=== PATIENT | female | born 1985 | race Caucasian/White ===

== ENCOUNTER → 2020-07-06 12:06 | Outpatient (CLI) | payer OTHER, SELFPAY ==
[2020-07-06 13:24] LABS: Appearance Urine UA CLEAR; Bilirubin Urine UA NEGATIVE (NEGATIVE); Color Urine UA YELLOW; Glucose Urine UA NEGATIVE (Negative); Ketones Urine UA NEGATIVE (NEGATIVE); Leukocyte Esterase Urine UA NEGATIVE (NEGATIVE); Nitrite Urine UA NEGATIVE (Negative); Occult Blood Urine UA TRACE-LYSED (Negative); Protein Urine UA NEGATIVE (Negative); Specific Gravity Urine UA 1.015 (1.000-1.035); Urobilinogen Urine UA 0.2 E.U./dL (0.2)
[2020-07-06 13:35] LABS: Add Manual Diff / Slide Review NO; Basophils Absolute Auto 0 /uL (0-100); Basophils Percent Auto 0.4 % (0-2); Eosinophils Absolute Auto 100 /uL (0-450); Hematocrit 36.5 % (36-46); Hemoglobin 12.3 g/dL (12.0-16.0); Lymphocytes Absolute Auto 2200 /uL (1100-4500); Lymphocytes Percent Auto 19.5 % (25-40); Mean Corpuscular HGB Conc 33.8 % (30-36); Mean Corpuscular Volume 91.9 fL (80-100); Monocytes Absolute Auto 600 /uL (0-900); Monocytes Percent Auto 4.9 % (3-14); Neutrophils Absolute Auto 8500 /uL (1500-7000); Neutrophils Percent Auto 74.2 % (50-75); Platelet Count 288 X10^3/uL (150-400); Red Blood Cell Count 3.97 X10^6/uL (4.0-5.2); Red Cell Distribution Width 12.4 % (11.6-14.8); White Blood Cell Count 11.5 X10^3/uL (4.5-11.0)
[2020-07-06 16:16] LABS: Urine N gonorrhoeae NOT DETECTED
[2020-07-06 16:37] LABS: Urine Chlamydia NOT DETECTED
[2020-07-06 17:45] LABS: HIV 1 & 2 Ab/Ag 4th Gen Combo NEGATIVE (NEGATIVE); Hep C Virus Ab w/Reflex Quant NEGATIVE s/c (NEGATIVE); Hepatitis B Surface Antigen NEGATIVE s/c (NEGATIVE); Rubella Antibody IgG 19.3 IU/mL (>15)
[2020-07-07 07:39] LABS: RPR Screen Non Reactive (Non Reactive)
[2020-07-07 08:09] LABS: Varicella IgG Antibody 1922 index (Immune >165)
== END ==
PROVIDERS: PCP Nurse Practitioner Family; Referring Provider Specialist; Visit Provider Specialist
DX: Z34.01 Encounter for supervision of normal first pregnancy, first trimester (principal); Z3A.08 8 weeks gestation of pregnancy
CPT/HCPCS: 36415; 80055; 81003; 86787; 86803; 86850; 86900; 86901; 87086; 87389; 87491; 87591

== ENCOUNTER → 2020-08-03 08:42 | Outpatient (ROUT) | payer OTHER, SELFPAY | PROVIDERS: PCP Nurse Practitioner Family; Visit Provider Specialist | DX: O09.511 Supervision of elderly primigravida, first trimester (principal); Z36.0 Encounter for antenatal screening for chromosomal anomalies | CPT/HCPCS: 81420 ==

== ENCOUNTER → 2020-09-28 10:08 | Outpatient (CLI) | payer OTHER, SELFPAY ==
--- NOTE | 2020-09-28 10:09 | DI.US.S_ITS ---
PROCEDURE: US OB >= 14 WEEKS FETUS INDICATIONS: ANATOMY OUTSIDE/PRIOR DATING DATA: Last menstrual period (LMP): 05/08/2020. LMP-based estimated date of delivery (GUERA): 02/12/2021 . First dating scan (date and location): 07/06/2020 . Estimated date of delivery (GUERA) from first dating scan: 02/10/2021 . TECHNIQUE: Real-time scanning was performed of the fetus, with image documentation and biometric measurements. Endovaginal scanning: No COMPARISON: [facility], , OB <= 14 WEEKS FETUS, 07/06/2020, 12:27. FINDINGS: General: A single living intrauterine gestation is present. Presentation: Breech. Placenta: Placental position is posterior , without previa. Amniotic fluid index: 13.1 cm, normal range is 5-24 cm. heart rate: 163 beats per minute. Maternal cervical canal: 3.2 cm long. Normal lower limit is 2.5 cm. biometrics: Biparietal diameter: 21 weeks 3 days Head circumference: 21 weeks Abdominal circumference: 21 weeks 3 days Femur length: 21 weeks 3 days Estimated gestational age from initial scan: 20 weeks 5 days Composite gestational age from present scan: 21 weeks 2 days Estimated weight and percentile: 420 g; 81st percentile. Measurement variability for biometric dating: +/- 7 days from 14 weeks to 15 weeks 6 days gestation, +/- 10 days from 16 weeks to 21 weeks 6 days gestation, +/- 2 weeks from 22 weeks to 27 weeks 6 days gestation, +/- 3 weeks for 28 weeks gestation or later. weight reference: 4500 g or EFW >90/95% is considered macrosomia or large for gestational age. EFW <10% is small for gestational age. EFW 5% or less is considered intra-uterine growth restriction. Anatomic survey: Neuro: Ventricles are non-dilated at less than 10 mm. Cisterna magna is normal at 3-11 mm. Cerebellum is normal in size and morphology. Nuchal skin fold: Normal at less than 6 mm between 14-21 weeks gestational age. Face: Nose and lips, facial profile are normal. Spine: No evidence for spina bifida. Heart: 4-chambered heart is present, with normal ventricular outflow tracts. Diaphragm: Diaphragm is intact. Stomach: Left-sided stomach is present. Kidneys: No hydronephrosis. Normal is less than 5 mm in 2nd trimester, less than 7 mm in 3rd trimester. Cord: 3-vessel cord has orthotopic insertion. Bladder: Normal in size. Extremities: All 4 extremities identified. IMPRESSION: 1. Normal interval growth. 2. Normal anatomic survey. Dictated by: John AGUSTIN Interpreted: Maggi Lewis MD on 09/28/2020 at 11:17 Transcribed by: ДМИТРИЙ on 09/28/2020 at 11:19 Approved by: Maggi Lewis M.D. on 09/28/2020 at 12:05
== END ==
PROVIDERS: PCP Nurse Practitioner Family; Referring Provider Specialist; Visit Provider Specialist
DX: Z34.92 Encounter for supervision of normal pregnancy, unspecified, second trimester (principal); Z3A.21 21 weeks gestation of pregnancy
CPT/HCPCS: 76811

== ENCOUNTER → 2021-01-17 08:12 | Outpatient (CLI) | payer OTHER, SELFPAY ==
[2021-01-18 08:39] LABS: Strep Grp B PCR NEG for Grp B Strep
== END ==
PROVIDERS: PCP Nurse Practitioner Family; Visit Provider Specialist
DX: Z34.03 Encounter for supervision of normal first pregnancy, third trimester (principal); Z3A.36 36 weeks gestation of pregnancy
CPT/HCPCS: 87653

== ENCOUNTER 2021-02-14 12:11 | Observation (INO) | payer OTHER, SELFPAY ==
--- NOTE | 2021-02-14 13:11 | PM.OBTRLD ---
Visit Information Visit Information Date of evaluation: 02/14/21 Primary OB Provider: Rosie Gonzales Reason for Evaluation: Yes non-stress test Comments/Additional reasons for admission: post dates [facility] Medical History (Updated 06/28/20 @ 12:53 by Griselda Childs, PAU) AMA (advanced maternal age) primigravida 35+ Anxiety Depression Migraine Oral herpes (~2007) Surgical History (Updated 06/28/20 @ 12:51 by Griselda Childs RN) No history of previous surgery S/P wisdom tooth extraction Family History (Updated 06/28/20 @ 12:51 by Griselda Childs RN) Father Chronic lymphocytic leukemia Cancer Cardiomyopathy History of open heart surgery Hyperlipidemia History of cholecystectomy Mother Diabetes mellitus Type 2 diabetes mellitus Depression H/O thyroidectomy Grandfather History of heart disease Grandmother Diabetes mellitus Type 2 diabetes mellitus Cancer Gynecologic cancer Grandfather Congestive heart failure Grandmother Dementia Brother No problems noted. 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 Patient will return tonight for beginning induction with Cervidil for postdates OB Disposition: home
== END 2021-02-14 12:58 | disposition home or self-care (01) ==
LOC: LABOR 12:12
PROVIDERS: Admitting Provider Specialist; PCP Specialist; Referring Provider Specialist; Visit Provider Specialist
DX: O48.0 Post-term pregnancy (principal); Z3A.40 40 weeks gestation of pregnancy
CPT/HCPCS: 59025; G0378; G0379

== ENCOUNTER 2021-02-14 18:12 | Inpatient (IN) | payer OTHER, SELFPAY ==
[2021-02-14 18:18] VITALS: BP 115/76
[2021-02-14 19:22] LABS: Add Manual Diff / Slide Review NO; Basophils Absolute Auto 0 /uL (0-100); Basophils Percent Auto 0.2 % (0-2); Eosinophils Absolute Auto 100 /uL (0-450); Eosinophils Percent Auto 0.4 % (2-4); Hematocrit 33.2 % (36-46); Hemoglobin 11.5 g/dL (12.0-16.0); Lymphocytes Absolute Auto 2400 /uL (1100-4500); Lymphocytes Percent Auto 18.9 % (25-40); Mean Corpuscular HGB Conc 34.6 % (30-36); Mean Corpuscular Hemoglobin 31.7 PG (26-34); Mean Corpuscular Volume 91.6 fL (80-100); Monocytes Absolute Auto 1000 /uL (0-900); Monocytes Percent Auto 7.8 % (3-14); Neutrophils Absolute Auto 9100 /uL (1500-7000); Neutrophils Percent Auto 72.7 % (50-75); Platelet Count 218 X10^3/uL (150-400); Red Blood Cell Count 3.63 X10^6/uL (4.0-5.2); Red Cell Distribution Width 12.7 % (11.6-14.8); White Blood Cell Count 12.5 X10^3/uL (4.5-11.0)
[2021-02-14] MEDS: DINOPROSTONE VAG (CERVIDIL) 10 MG VAG (19:29)
[2021-02-14 19:35] LABS: COVID19 -Nasal RAPID Negative (Negative)
--- NOTE | 2021-02-15 07:44 | PM.OBHP.1 ---
OB HPI Date/Time Date of admission: 02/15/21 Date Patient Seen: 02/15/21 Time Patient Seen: 07:45 History of Present Condition Chief complaint: INDUCTION : 1 Para: 0 Estimated Date of Delivery: 02/12/21 Estimated Gestational Age (weeks): 40 Narrative: Susana Zamorano is a 35 year old female admitted for induction for postdates Indications Indication for induction OB: post dates History of Present care: good care, initiated at week # (8), number of visits (13) and pounds weight gain (58) Dating criteria: LMP confirmed by 1st trimester US Ultrasounds: normal mid trimester US Obstetrical complications: none Medical complications: none Preadmission Labs Blood type: A (+) positive -: Antibody screen: negative, GBS status: negative, HBsAG: negative, HIV: negative, HSV 1: positive and RPR/VDLR: negative -: Chlamydia screen: not detected and Gonorrhea screen: not detected -: Rubella: immune and Varicella: immune HCAB: negative Cell-free DNA: normal male 1 hr GTT: 95 Evaluation Evaluation Baseline heart rate: 15 Variability: Moderate (11-25) monitor accelerations: Present Monitor Decelerations: Absent Contraction Frequency (minutes): 3 Uterine Contraction Intensity: Mild Category of Tracing: Reactive Status: Category l Dilation (cm): 0 Effacement (%): 100 station: 0 Position of cervix: posterior [facility] Medical History (Updated 06/28/20 @ 12:53 by Griselda Childs RN) AMA (advanced maternal age) primigravida 35+ Anxiety Depression Migraine Oral herpes (~2007) Surgical History (Updated 06/28/20 @ 12:51 by Griselda Childs RN) No history of previous surgery S/P wisdom tooth extraction Family History (Updated 06/28/20 @ 12:51 by Griselda Childs RN) Father Chronic lymphocytic leukemia Cancer Cardiomyopathy History of open heart surgery Hyperlipidemia History of cholecystectomy Mother Diabetes mellitus Type 2 diabetes mellitus Depression H/O thyroidectomy Grandfather History of heart disease Grandmother Diabetes mellitus Type 2 diabetes mellitus Cancer Gynecologic cancer Grandfather Congestive heart failure Grandmother Dementia Brother No problems noted. 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) current occupational exposures/hazards: Yes ([place]) special polina needs: No Smoking Status: Never smoker second hand exposure: No alcohol intake: former (pre- : a glass of wine/day) substance use type: does not use Meds Home Medications and Allergies Home Medications Medication Instructions Recorded Confirmed Type acyclovir 400 mg tablet 400 mg PO .PRN tab 06/28/20 02/14/21 History vitamin with calcium See Rx Instructions .ROUTE 12/25/20 02/14/21 Rx no.72-iron 27 mg-folic acid 1 mg .COMPLEX #90 tab tablet ( Vitamins Plus Low Iron) Allergies Allergy/AdvReac Type Severity Reaction Status Date / Time No Known Drug Allergies Allergy Verified 02/14/21 19:53 Review of Systems Review of Systems Narrative: Patient denies headaches, scotomata, epigastric pain. She continues to have itching of her hands and feet. She has decreased pain with her contractions after the Cervidil was removed at 1:30 a.m. No leakage of fluid. Good movement. OB Exam Narrative Exam Narrative: Blood pressure 118/69, pulse 66, temperature 98? HEENT exam within normal limits. Lungs are clear to auscultation percussion. Heart is regular rate and rhythm no S3-S4 murmurs. Abdomen is gravid and nontender. Fetus is vertex. extremities with trace edema and nontender. Objective Labs Result Diagrams: 02/14/21 18:40 Labs: Laboratory Results - last 24 hr 02/14/21 02/14/21 02/14/21 18:40 18:40 18:40 WBC 12.5 H RBC 3.63 L Hgb 11.5 L Hct 33.2 L MCV 91.6 MCH 31.7 MCHC 34.6 RDW 12.7 Plt Count 218 Neut % (Auto) 72.7 Lymph % (Auto) 18.9 L Cedar % (Auto) 7.8 Eos % (Auto) 0.4 L Baso % (Auto) 0.2 Neut # (Auto) 9100 H Lymph # (Auto) 2400 Cedar # (Auto) 1000 H Eos # (Auto) 100 Baso # (Auto) 0 SARS-CoV-2 (PCR) Negative Blood Type A Positive Antibody Screen Negative Assessment and Plan Assessment and Plan Assessment and Plan narrative: 40 weeks 3 days gestation will continue induction with Pitocin. Pain medicine has needed.
[2021-02-15] MEDS: LACTATED RINGERS 1,000 ML 100 ML IV ×3 (08:40→17:33)
[2021-02-15] MEDS: OXYTOCIN PREMIX 30 UNIT/500 ML PLAST..BAG 200 UNIT IV (08:41)
[2021-02-15] MEDS: FENT 2MCG/ML BUPIV 0.125% EPI 200 MCG/100 ML PLAST..BAG 10 MCG EPIDURAL (16:00)
[2021-02-15] MEDS: FENT 2MCG/ML BUPIV 0.125% EPI 200 MCG/100 ML PLAST..BAG 12 MCG EPIDURAL (20:20)
--- NOTE | 2021-02-15 22:23 | PM.OBPRVD ---
Labor & Delivery Delivery date: 02/15/21 Intrapartal Events: Deceleration ( repetitive late decelerations followed by tachycardia) Cervical ripening method: per Cervidil protocol Induction method: per pitocin protocol Delivery augmentation: rupture of membranes Delivery monitor: external FHT and external uterine Route of delivery: vacuum extraction Indication for instrumentation: nonreassuring FHR tracing L&D Laceration Description: Perineal - 3rd Degree ( capsule only) Delivery repair: vicryl (2 0) and chromic (3 0) Estimated blood loss (mL): 300 Anesthesia Type: Epidural Narrative: Patient arrived on Labor and delivery for induction for distance from the hospital at 40 1/2 weeks. She received Cervidil which was removed early due to frequency of contractions. She was started on Pitocin and received an epidural catheter for pain control. Patient had periodically variable decelerations some late in timing but overall category 1 to category 2 tracing. She was AROMed for meconium-stained fluid. Patient progressed to complete dilation. She had increasing late decelerations. She had resuscitation methods with O2, IV fluid bolus, change in positions. There is some improvement in the variables however the fetus began having tachycardia. Decision was made to expedite delivery. Vacuum extractor was placed and used for a contraction. The next 2 contractions the vacuum extractor popped off. The patient pushed a few more contractions without the vacuum extractor and then the vacuum was placed to deliver the head. After deliver the head there was found to be a very tight nuchal cord. There was a 1 1/2 min. of shoulder dystocia with delivery of the posterior shoulder followed by the anterior shoulder. The was taken immediately to the warmer. The placenta delivered spontaneously, intact, with 3 vessels. The patient was found to have a partial third-degree tear which was repaired 1st with 2 0 Vicryl reapproximating the capsule of the rectal sphincter and a couple of deep stitches followed by repair the tear with 3-0 chromic suture in the usual 2 layer fashion. Estimated blood loss 300 cc. Cord pH of 7.076 base excess -8, and 7.23 to base excess -8. Both and mother doing well. [place] Baby 1: gender: Male Presentation: vertex Position: Left Occiput Anterior Placenta delivery description: Spontaneous Cord Vessel Description: 3 Vessels, Nuchal Cord and Tight Plan for aftercare: Routine care
[2021-02-15] MEDS: ACETAMINOPHEN 325 MG TABLET 650 MG PO (23:38)
[2021-02-15] MEDS: IBUPROFEN 600 MG TABLET PO (23:38)
[2021-02-16] MEDS: ACETAMINOPHEN 325 MG TABLET 650 MG PO ×3 (07:21→23:11)
[2021-02-16] MEDS: IBUPROFEN 600 MG TABLET PO ×3 (07:22→23:11)
[2021-02-16 07:35] LABS: Add Manual Diff / Slide Review NO; Basophils Absolute Auto 0 /uL (0-100); Basophils Percent Auto 0.1 % (0-2); Eosinophils Absolute Auto 100 /uL (0-450); Eosinophils Percent Auto 0.3 % (2-4); Hematocrit 28.3 % (36-46); Hemoglobin 9.7 g/dL (12.0-16.0); Lymphocytes Absolute Auto 2200 /uL (1100-4500); Lymphocytes Percent Auto 8.7 % (25-40); Mean Corpuscular HGB Conc 34.2 % (30-36); Mean Corpuscular Hemoglobin 31.7 PG (26-34); Mean Corpuscular Volume 92.7 fL (80-100); Monocytes Absolute Auto 2000 /uL (0-900); Monocytes Percent Auto 7.8 % (3-14); Neutrophils Absolute Auto 20900 /uL (1500-7000); Neutrophils Percent Auto 83.1 % (50-75); Platelet Count 176 X10^3/uL (150-400); Red Blood Cell Count 3.05 X10^6/uL (4.0-5.2); Red Cell Distribution Width 12.7 % (11.6-14.8); White Blood Cell Count 25.1 X10^3/uL (4.5-11.0)
--- NOTE | 2021-02-16 11:44 | PM.OBPN.1 ---
Subjective - OB Subjective Patient comments: no complaints [place] baby status: doing well and nursing well [place] feeding status: exclusively breast feeding Date Patient Seen: 02/16/21 Time Patient Seen: 11:44 Interval history: postoperative day 1 Vacuum assisted vaginal delivery Exam Vital Signs (past 8 hours): blood pressure 120/87, pulse of 98, temperature 98.2? Narrative Exam Narrative: Abdomen is soft, nontender. Uterus is firm, at U, nontender. Repair is intact. Mild lochia. Extremities with +1 edema and trace tenderness in the right calf but no evidence of blood clot. Objective Labs Result Diagrams: 02/16/21 06:52 Labs: Laboratory Results - last 24 hr 02/16/21 06:52 WBC 25.1 H D RBC 3.05 L Hgb 9.7 L Hct 28.3 L MCV 92.7 MCH 31.7 MCHC 34.2 RDW 12.7 Plt Count 176 Neut % (Auto) 83.1 H Lymph % (Auto) 8.7 L Pershing % (Auto) 7.8 Eos % (Auto) 0.3 L Baso % (Auto) 0.1 Neut # (Auto) 73348 H Lymph # (Auto) 2200 Pershing # (Auto) 2000 H Eos # (Auto) 100 Baso # (Auto) 0 Assessment & Plan Assessment and Plan (1) Vacuum-assisted vaginal delivery: Status: Acute Plan day: 1 plan OB: routine care Time Spent With Patient Time: Total time spent is greater than 50% in coordination of care (as documented) at patient's floor/unit and/or counseling patient: Time with patient: less than 15 minutes
[2021-02-17] MEDS: IBUPROFEN 600 MG TABLET PO (06:15)
[2021-02-17 08:22] VITALS: BP 129/96; PULSE 103; RESP 16; TEMP 36.4
[2021-02-17] MEDS: DOCUSATE 100 MG CAPSULE PO (08:39)
--- NOTE | 2021-02-17 10:25 | P.DS_ITS ---
Discharge Providers Provider Date of admission: 02/14/21 18:12 Discharge Date: 02/17/21 Primary care physician: Dominique Vazquez MD Consults: 02/14/21 18:21 Consult to Anesthesiology Urgent Comment: Consulting Provider: Anesthesiologist Reason for consultation: Epidural Has provider been notified: No 02/16/21 22:18 Consult to Offshore Wind Turbine Technician Routine Comment: Discharge provider: Tosin Hillman MD Summary Hospital Course Date Patient Seen: 02/17/21 Time Patient Seen: 10:26 Diagnoses: vacuum assisted vaginal delivery, 3rd degree perineal laceration Peripartum Data Infant Delivery Method: Natural Vaginal Laceration Description: Perineal - 3rd Degree complications: none 1: Gender: Male Disposition of : home Discharge Diagnosis (1) Vacuum-assisted vaginal delivery: Start Date: 02/17/21 Start Time: 10:28 Status: Acute Status at Discharge Cognitive/behavioral status at discharge: oriented Functional status at discharge: independent ambulation Overall status at discharge: patient is progressing back to baseline Time Spent with Patient Time attestation: Total time spent providing and/or coordinating discharge services: Time spent: Less than 30 minutes Objective Labs Result Diagrams: 02/16/21 06:52 Exam Vital Signs (past 8 hours): 120s-130s/80s, HR 90s 02/17/21 08:22 Temperature 97.5 F L Pulse Rate 103 H Respiratory Rate 16 Blood Pressure 129/96 H Narrative Exam Narrative: Patient reports feeling well, with moderate lochia that is decreasing, good pain control, no CRUZ, visual changes, SOB. Mild dizziness with prolonged ambulation Const General: cooperative, healthy appearing, comfortable and well groomed Orientation: alert, awake and oriented x3 GI Palpation: soft and No tender Discharge Plan Discharge Plan Patient Disposition: Home Discharge orders & Medications Prescriptions: Continued Vitamin Plus Low Iron 27 mg iron- 1 mg tablet See Rx Instructions .ROUTE .COMPLEX Qty: 90 4RF Dose Instruction: TAKE ONE TABLET BY MOUTH EVERY DAY FOR Rx Instructions: TAKE ONE TABLET BY MOUTH EVERY DAY FOR acyclovir 400 mg tablet 400 mg PO .PRN 0RF Follow up/Referrals: Rosie Gonzales MD [Physician] - ( patient has follow-up appointment scheduled in 2 weeks) Dominique Vazquez MD [Primary Care Provider] - Diet/Activity/Treatments Diet: Regular Activity: nothing in vagina for 6 weeks Skin/Wound/Dressing Care Report to your healthcare provider any signs of infection, such as:: chills, fever and increased pain Discharge Data Primary Care Provider: Dominique Vazquez
== END 2021-02-17 12:46 | disposition home or self-care (01) | DRG 768 ==
PROVIDERS: Admitting Provider Specialist; PCP Specialist; Referring Provider Specialist; Visit Provider Specialist
DX: O48.0 Post-term pregnancy (principal); Z37.0 Single live birth; O70.20 Third degree perineal laceration during delivery, unspecified; O98.52 Other viral diseases complicating childbirth; B00.9 Herpesviral infection, unspecified; O66.0 Obstructed labor due to shoulder dystocia; O76 Abnormality in fetal heart rate and rhythm complicating labor and delivery; Z3A.40 40 weeks gestation of pregnancy; O69.81X0 Labor and delivery complicated by cord around neck, without compression, not applicable or unspecified; Z20.822 Contact with and (suspected) exposure to COVID-19
CPT/HCPCS: 01967; 36415; 59025; 59050; 59200; 59400; 85025; 86850; 86900; 86901; 87635; C9803; G0378; G0379; J2590